=== PATIENT | male | born 1960 | race Caucasian/White ===

== ENCOUNTER 2016-07-09 09:21 | Emergency (ER) | payer BC ==
[2016-07-09] MEDS ORDERED: TETANUS/DIPHTHERIA/PERTUSSIS 0.5 ML SYRINGE IM ONE ×2 (09:33→09:38)
[2016-07-09] MEDS ORDERED: CEPHALEXIN 250 MG CAPSULE PO STA (09:48)
--- NOTE | 2016-07-09 09:49 | ED Physician Documentation ---
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[facility] lac to radial aspect mid to distal L thumb with a table saw today Review of Systems Skin: reports: Laceration (s) PD PAST MEDICAL HISTORY - Past Surgical History Past Surgical History: Yes HEENT: Tonsil/Adenoidectomy - Present Medications Home Medications: Ambulatory Orders Medication Instructions Recorded Confirmed Cephalexin [Keflex] 500 mg PO Q6H #28 capsule 07/09/16 Hydrocodone/Acetaminophen [Vicodin 1 tab PO QID PRN 07/09/16 07/09/16 5-300 mg Tablet] - Allergies Allergies/Adverse Reactions: Allergies Allergy/AdvReac Type Severity Reaction Status Date / Time droperidol Allergy Unknown Verified 07/09/16 09:29 - Social History Does the pt smoke?: No Smoking Status: Never smoker Does the pt drink ETOH?: No Does the pt have substance abuse?: No - Immunizations Immunizations are current?: No Immunizations: TDAP >10years/unknown PD ED PE NORMAL - Vitals Vital signs reviewed: Yes - Extremities Extremities: Other (approx 2 cm jagged lac to radial aspect mid to distal L thum , slight dec snsation desital but some sensation in present so doubt complete nerve injury, full flexion and extension s weakness, + cap refill) Results - Vitals Vitals: Vital Signs - 24 hr 07/09/16 09:24 Temperature 36.8 C Heart Rate 83 Respiratory 18 Rate Blood Pressure 176/113 H O2 Saturation 97 Oxygen O2 Source Room air Departure - Departure Disposition: 01 Home, Self Care Clinical Impression: Laceration of thumb Qualifiers: Encounter type: initial encounter Laterality: left Qualified Code(s): S61.012A - Laceration without foreign body of left thumb without damage to nail, initial encounter Condition: Good Instructions: ED Lac Hand Poss Nerve Injy Sutr Gl Prescriptions: Cephalexin [Keflex] 500 mg PO Q6H #28 capsule Comments: This wound is at high risk for infection. We irrigated it out carefully and prescribed prophylactic antibiotics. But please watch carefully for any developing infection. Also you may have some nerve damage - there is still some sensation distally which is reassuring - but it is possible that the sensation may not return to normal Sutures out in 7 days Also -please follow up with your PMD about your blood pressure - it was high today
[2016-07-09] MEDS ORDERED: CEPHALEXIN 250 MG CAPSULE PO ONE (09:52)
[2016-07-09] MEDS ORDERED: BUPIVACAINE 0.5% PF 30 ML VIAL ONE (10:38)
--- NOTE | 2016-07-09 10:46 | XRAY Preliminary Report ---
Exam: XR Finger(s) LT IMPRESSION: Soft tissue injury without underlying acute bony abnormality or radiographically evident retained foreign body. [facility] SITE ID: [id number]
--- NOTE | 2016-07-09 10:48 | XRAY Report ---
EXAM: LEFT FIRST DIGIT RADIOGRAPHY EXAM DATE: 07/09/2016 09:55 AM. CLINICAL HISTORY: Tablesaw injury to left thumb. COMPARISON: None. TECHNIQUE: 3 views. FINDINGS: Bones: Surgical anchor in the first proximal phalangeal base. Tiny corticated osseous density lateral to the first interphalangeal joint, remote traumatic versus degenerative etiology No acute fracture. Joints: Mild osteophytosis at the first CMC and IP joints, compatible with gastroenteritis. Soft Tissues: Focal soft tissue defect lateral to the first distal phalanx. No radiopaque foreign bod y. IMPRESSION: Soft tissue injury without underlying acute bony abnormality or radiographically evident retained foreign body. [facility] Referring Provider Line: [phone] SITE ID: [id number]
[2016-07-09 12:08] VITALS: BP 181/102
== END 2016-07-09 12:22 | disposition home or self-care (01) ==
LOC: ED 09:21
DX: S61.012A Laceration without foreign body of left thumb without damage to nail, initial encounter (principal); W31.2XXA Contact with powered woodworking and forming machines, initial encounter; Z23 Encounter for immunization
CPT/HCPCS: 12001; 73140; 90471; 90715; 99283; A9270

== ENCOUNTER 2016-07-11 14:11 | Outpatient (CLI) | payer BC | END 2016-07-11 14:12 | disposition home or self-care (01) | DX: I10 Essential (primary) hypertension (principal); Z12.5 Encounter for screening for malignant neoplasm of prostate ==

== ENCOUNTER 2016-07-11 19:49 | Outpatient (CLI) | payer BC ==
[2016-07-11 17:41] LABS: BILIRUBIN,URINE NEGATIVE (NEGATIVE); PH,URINE 7.5 PH (5.0-7.5)
[2016-07-11 17:42] LABS: UA CHARGE (STRIP ONLY) YES; UR CULTURE IF IND NOT INDICATED
== END 2016-07-11 19:50 | disposition home or self-care (01) ==
LOC: LAB.R 19:49
PROVIDERS: ATTEND Internal Medicine
DX: I10 Essential (primary) hypertension (principal)
CPT/HCPCS: 81001; 81003; 82043; 82570; 87086

== ENCOUNTER 2016-07-13 08:00 | Outpatient (CLI) | payer BC | END 2016-07-13 23:59 | disposition home or self-care (01) | LOC: LAB.R 08:00 | PROVIDERS: ATTEND Internal Medicine | DX: I10 Essential (primary) hypertension (principal) | CPT/HCPCS: 82384; 83835 ==

== ENCOUNTER 2016-07-13 08:00 | Outpatient (CLI) | payer BC | END 2016-07-13 23:59 | disposition home or self-care (01) | LOC: LAB.R 08:00 | PROVIDERS: ATTEND Internal Medicine | DX: Z53.9 Procedure and treatment not carried out, unspecified reason (principal) ==

== ENCOUNTER 2016-07-19 13:52 | Outpatient (CLI) | payer BC ==
--- NOTE | 2016-07-21 09:59 | XRAY Report ---
EXAM: CHEST RADIOGRAPHY, 2 VIEWS EXAM DATE: 07/19/2016 03:07 PM. CLINICAL HISTORY: 56-year-old female with hypertension and abnormal EKG. COMPARISON: None. TECHNIQUE: Upright PA and lateral views. FINDINGS: Lungs/Pleura: No focal opacities evident. No pleural effusion. No pneumothorax. Normal volumes. Mediastinum: Heart and mediastinal contours are unremarkable. No pulmonary vascular congestion or netta nopathy. Other: Trachea and osseous structures are unremarkable. IMPRESSION: Normal chest for age and body size. [facility] Referring Provider Line: [phone] SITE ID: [id number]
== END 2016-07-19 13:53 | disposition home or self-care (01) ==
LOC: DI 13:52
PROVIDERS: ATTEND Internal Medicine
DX: I10 Essential (primary) hypertension (principal)
CPT/HCPCS: 71020; 93306

== ENCOUNTER 2016-07-24 08:54 | Outpatient (CLI) | payer BC ==
[2016-07-24 18:27] LABS: CHOL/HDL RATIO 4.7 (<5.0); CHOLESTEROL 149 mg/dL; HDL CHOLESTEROL 32 mg/dL; TRIGLYCERIDES 111 mg/dL; VLDL CHOLESTEROL 22 mg/dL
== END 2016-07-24 08:55 | disposition home or self-care (01) ==
LOC: LAB.R 08:54
PROVIDERS: ATTEND Internal Medicine
DX: I10 Essential (primary) hypertension (principal)
CPT/HCPCS: 80061

== ENCOUNTER 2022-04-07 01:17 | Emergency (ER) | payer BC ==
--- NOTE | 2022-04-07 01:33 | ED Physician Documentation ---
PD HPI CHEST PAIN - Stated complaint Stated Complaint: CHEST PX - Chief complaint Chief Complaint: Cardiac - History obtained from History obtained from: Patient - History of Present Illness Timing - onset: How many hours ago ( 1/2) Timing - onset during: Rest, Light activity Timing - details: Abrupt onset, Still present Quality: Pressure, Aching Location: Substernal, Epigastric Radiation: Abdominal. No: Neck, Back Improved by: No: Rest Worsened by: Palpation. No: Inspiration, Movement Associated symptoms: Shortness of air, Nausea. No: Diaphoresis, Vomiting, Feeling faint / dizzy Similar symptoms before: Has not had sx before, Other (He states he is typically active and does workout regularly. He had gone on a hike a few days ago without any exertionally related chest pain or dyspnea.) Recently seen: Not recently seen Review of Systems Constitutional: denies: Fever, Chills Nose: denies: Rhinorrhea / runny nose, Congestion Throat: denies: Sore throat Cardiac: reports: Chest pain / pressure. denies: Palpitations Respiratory: denies: Dyspnea, Cough GI: reports: Abdominal Pain, Nausea. denies: Vomiting, Diarrhea Musculoskeletal: denies: Neck pain, Back pain PD PAST MEDICAL HISTORY - Past Medical History Cardiovascular: None Respiratory: None Neuro: None Endocrine/Autoimmune: None - Past Surgical History Past Surgical History: Yes HEENT: Tonsil/Adenoidectomy - Present Medications Home Medications: Ambulatory Orders Medication Instructions Recorded Confirmed Amlodipine Besylate [Norvasc] 10 mg PO DAILY 04/07/22 04/07/22 Dicyclomine [Bentyl] 10 mg PO QID PRN #15 cap 04/07/22 Losartan Potassium [Cozaar] 100 mg PO DAILY 04/07/22 04/07/22 Ondansetron Odt [Zofran] 4 mg TL Q6H PRN #10 tablet 04/07/22 Oxycodone HCl/Acetaminophen 1 each PO Q6H PRN #20 tablet 04/07/22 [Percocet 5-325 mg Tablet] - Allergies Allergies/Adverse Reactions: Allergies Allergy/AdvReac Type Severity Reaction Status Date / Time droperidol Allergy Unknown Verified 04/07/22 01:26 - Social History Does the pt smoke?: No Smoking Status: Never smoker Does the pt drink ETOH?: No Does the pt have substance abuse?: No - Immunizations Immunizations are current?: No Immunizations: TDAP >10years/unknown PD ED PE NORMAL - Vitals Vital signs reviewed: Yes - General General: Alert and oriented X 3, Well developed/nourished, Other (appears in pain) - HEENT HEENT: Pharynx benign - Neck Neck: Supple, no meningeal sign, No adenopathy - Cardiac Cardiac: RRR, No murmur - Respiratory Respiratory: No respiratory distress, Clear bilaterally - Abdomen Abdomen: Normal bowel sounds, Soft, Non distended, No organomegaly, Other (He is actually fairly tender in the right upper quadrant with guarding in that area and mild percussion tenderness. No tenderness on the chest wall or cartilage.) - Derm Derm: Normal color, Warm and dry, No rash - Extremities Extremities: No tenderness to palpate, Normal ROM s pain, No edema, No calf tenderness / cord - Neuro Neuro: Alert and oriented X 3, No motor deficit, Normal speech Results - Vitals Vitals: Vital Signs - 24 hr 04/07/22 04/07/22 04/07/22 01:20 01:57 02:02 Temperature 36.0 C L Heart Rate 67 61 68 Respiratory 16 17 20 Rate Blood Pressure 144/77 H 121/76 111/59 L O2 Saturation 98 100 98 04/07/22 04/07/22 04/07/22 02:09 02:20 02:32 Temperature Heart Rate 67 80 Respiratory 17 23 Rate Blood Pressure 111/65 121/74 128/75 O2 Saturation 100 97 04/07/22 04/07/22 04/07/22 02:52 02:55 03:52 Temperature Heart Rate 68 70 70 Respiratory 19 18 18 Rate Blood Pressure 128/74 120/74 136/75 H O2 Saturation 99 99 96 04/07/22 04:10 Temperature Heart Rate 76 Respiratory 17 Rate Blood Pressure 129/74 O2 Saturation 97 Oxygen O2 Source Room air - EKG (time done) 01:23 Rate: Rate (enter#) (68) Rhythm: NSR Moody: Normal Intervals: Normal VT QRS: Normal Ischemia: Normal ST segments, T wave inversion (V4-V6). No: ST elevation c/w ischemia, ST depression Compare to prior EKG: Old EKG unavailable - Labs Labs: Laboratory Tests 04/07/22 04/07/22 04/07/22 01:25 01:25 01:25 WBC 8.6 RBC 4.54 L Hgb 14.1 Hct 41.8 L MCV 92.1 MCH 31.1 H MCHC 33.7 RDW 12.9 Plt Count 265 MPV 9.1 Neut # (Auto) 3.9 Lymph # (Auto) 3.5 [place] # (Auto) 0.9 Eos # (Auto) 0.3 Baso # (Auto) 0.1 Absolute Nucleated RBC 0.00 Nucleated RBC % 0.0 Sodium 138 Potassium 3.4 L Chloride 103 Carbon Dioxide 25 Anion Gap 10.0 BUN 11 Creatinine 0.6 Estimated GFR (MDRD) 137 Glucose 144 H Calcium 8.8 Magnesium Total Bilirubin 0.4 AST 20 ALT 20 Alkaline Phosphatase 53 Troponin I High Sens 3.2 B-Natriuretic Peptide Total Protein 6.9 Albumin 3.9 Globulin 3.0 Albumin/Globulin Ratio 1.3 Lipase 41 04/07/22 04/07/22 01:25 01:25 WBC RBC Hgb Hct MCV MCH MCHC RDW Plt Count MPV Neut # (Auto) Lymph # (Auto) [place] # (Auto) Eos # (Auto) Baso # (Auto) Absolute Nucleated RBC Nucleated RBC % Sodium Potassium Chloride Carbon Dioxide Anion Gap BUN Creatinine Estimated GFR (MDRD) Glucose Calcium Magnesium 2.3 Total Bilirubin AST ALT Alkaline Phosphatase Troponin I High Sens B-Natriuretic Peptide 34 Total Protein Albumin Globulin Albumin/Globulin Ratio Lipase - Rads (name of study) abd U/S Radiology: Prelim report reviewed (Thickened gallbladder wall with distended gallbladder. Common bile duct is normal. No Dean cholecystic fluid.), See rad report chest xray Radiology: Prelim report reviewed (no acute process), See rad report PD Medical Decision Making - ED course ED course: The patient presents with concerns of substernal chest pain. However on exam he actually seems to be fairly tender in the right upper quadrant and McBurney's point. The pain is lower substernal radiating to the back. Certainly there will be concern for cardiac causes and he did have an EKG, chest x-ray and both troponin and BNP that were all normal. He has been active. There is no calf tenderness nor leg edema so I have low to no suspicion for PE and there is no pleuritic component to the pain. He does have tenderness in the upper abdomen and that turns attention to the possibility of gallbladder or pancreas. Blood tests were done in showed normal blood tests for those. However given the suspicion for gallbladder, we I did order an ultrasound. The ultrasound was done and did show acute cholecystitis. His abdominal pain and tenderness did improve quite a bit with some pain medicine as well as Toradol. Initially he was given nitroglycerin with the first impression concern for heart. There was no change in his discomfort with that. He did have good improvement with hydromorphone IV. He was given a repeat dose of hydromorphone and his as his pain increased again a. He did remain reasonably comfortable. We did discuss the treatment options of staying for cholecystitis and cholecystectomy. However he was improving reasonably well. 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 At this point the patient has improved with symptoms and is able to take oral fluids and p.o. medications. His blood tests are normal. Shared decision is for him to discharge home with medications and clear liquid diet. He should contact surgeon outpatient and discuss likely cholecystectomy this coming week. If he does improve well, then it could be deferred even longer but that would be between he and his surgeon. Departure - Departure Disposition: 01 Home, Self Care Clinical Impression: Acute upper abdominal pain Cholecystitis, acute with cholelithiasis Qualifiers: Biliary obstruction: without biliary obstruction Qualified Code(s): K80.00 - Calculus of gallbladder with acute cholecystitis without obstruction Condition: Stable Record reviewed to determine appropriate education?: Yes Instructions: ED Gallbladder Infec Poss Follow-Up: Thee Nichols MD [Physician No Access] - Prescriptions: Dicyclomine [Bentyl] 10 mg PO QID PRN #15 cap PRN Reason: Abdominal Pain Oxycodone HCl/Acetaminophen [Percocet 5-325 mg Tablet] 1 each PO Q6H PRN #20 tablet PRN Reason: pain Ondansetron Odt [Zofran] 4 mg TL Q6H PRN #10 tablet PRN Reason: Nausea / Vomiting Comments: Your EKG had some inverted T waves on the lateral leads but no ischemic-looking changes per se (ST elevation or depression). Your blood tests looking for signs of heart injury or heart failure (troponin and BNP) are both normal. Your liver enzymes and white blood count are normal as is your lipase/pancreatic enzyme. Your abdominal ultrasound shows thickening of the gallbladder wall and some distention of the gallbladder. There is no surrounding fluid. The common bile duct is normal sized. This looks therefore to be an acute inflammation of the gallbladder likely from some plugging of his stones at the outlet of the gallbladder. It does not appear like an infection as of yet. The symptoms can reverse with some anti-inflammatories as well as clear liquid diet and treating the symptoms with nausea medicine and pain medicine. See how well this improves over the next few days and return to the ER if significantly worsened pain or associated fever, vomiting, bloody stools or generalized abdominal pain and distention. Otherwise follow-up with your general surgeon on Friday to discuss gallbladder surgery in the short-term. I sent prescriptions to [facility] pharmacy in [place] to include Zofran for nausea, Percocet for pain, and dicyclomine for gallbladder spasms/abdominal pain. I am prescribing a short course of narcotic pain medication for you. These are potentially dangerous and addictive medications that should be used carefully. These medications may constipate you. Take an [id number] stool softener such as docusate twice daily with plenty of water while taking these medications. If you go 24 hours without a bowel movement, take [id number] MiraLAX, per package instructions. Do not drink or drive while taking these medications. If you received narcotic or sedating medications while in the emergency department do not drive for 24 hours. Store this medication in a safe, secure place and out of reach of children. It is a violation of federal law to give or sell this medication to another person or to use in a manner other than prescribed. The ED will not refill narcotic prescriptions, including prescriptions lost or stolen. You can dispose of unwanted medications at the [facility] office or at several pharmacies such as [facility]. Discharge Date/Time: 04/07/22 04:17
[2022-04-07 01:35] LABS: BASOPHILS # (AUTO) 0.1 10^3/uL (0.0-0.1); BASOPHILS % (AUTO) 0.8 %; EOSINOPHILS # (AUTO) 0.3 10^3/uL (0.0-0.7); EOSINOPHILS % (AUTO) 3.6 %; HCT - HEMATOCRIT 41.8 % (42.0-52.0); HGB - HEMOGLOBIN 14.1 g/dL (14.0-18.0); LYMPHOCYTES # (AUTO) 3.5 10^3/uL (1.5-3.5); MEAN CORPUSCULAR HEMOGLOBIN 31.1 pg (27.0-31.0); MEAN CORPUSCULAR HGB CONC 33.7 g/dL (32.0-36.0); MEAN CORPUSCULAR VOLUME 92.1 fL (80.0-94.0); MEAN PLATELET VOLUME 9.1 fL (7.4-11.4); MONOCYTES # (AUTO) 0.9 10^3/uL (0.0-1.0); MONOCYTES % (AUTO) 10.7 %; NEUTROPHILS # (AUTO) 3.9 10^3/uL (1.5-6.6); NEUTROPHILS % (AUTO) 44.8 %; PLT - PLATELET COUNT 265 10^3/uL (130-450); RED BLOOD COUNT 4.54 10^6/uL (4.70-6.10); RED CELL DISTRIBUTION WIDTH 12.9 % (12.0-15.0); WHITE BLOOD COUNT 8.6 x10^3/uL (4.8-10.8)
[2022-04-07] MEDS ORDERED: NITROGLYCERIN SL 0.4 MG TABLET SL STA (01:48)
[2022-04-07] MEDS ORDERED: KETOROLAC 15 MG/ML VIAL IVP STA (01:48)
[2022-04-07] MEDS ORDERED: HYDROmorphone 1 MG/ML CARPUJECT IVP STA ×3 (01:48→03:46)
[2022-04-07 01:49] LABS: ALBUMIN 3.9 g/dL (3.2-5.5); ALBUMIN/GLOBULIN RATIO 1.3 (1.0-2.2); BILIRUBIN,TOTAL 0.4 mg/dL (0.2-1.0); CALCIUM 8.8 mg/dL (8.5-10.3); CREATININE 0.6 mg/dL (0.6-1.2); POTASSIUM 3.4 mmol/L (3.5-5.0); TOTAL PROTEIN 6.9 g/dL (6.7-8.2)
--- NOTE | 2022-04-07 02:02 | XRAY Report ---
PROCEDURE: Chest 1 View X-Ray INDICATIONS: Chest pain TECHNIQUE: One view of the chest was acquired. COMPARISON: 07/19/2016 2 view chest. FINDINGS: Surgical changes and devices: None. Lungs and pleura: No pleural effusions or pneumothorax. Lungs are mildly abnormal, with an intersti tial prominence that has been previously present on the comparison chest plain film also from June 7.. Mediastinum: Mediastinal contours appear normal. Heart size is normal. Bones and chest wall: No suspicious bony lesions. Overlying soft tissues appear unremarkable. IMPRESSION: Mild interstitial prominence within the lung parenchyma without cardiomegaly or focal pneumonia found . A similar interstitial prominence was present also in 2017. No acute disease. Reviewed by: Clark Prieto MD on 04/07/2022 2:01 AM [facility] Approved by: Clark Prieto MD on 04/07/2022 2:01 AM [facility] Station ID: [id number]
[2022-04-07] MEDS ORDERED: SODIUM CHLORIDE 0.9% 500 ML IV STA (02:05)
[2022-04-07] MEDS ORDERED: DICYCLOMINE 10 MG CAPSULE PO STA (03:46)
[2022-04-07] MEDS ORDERED: ONDANSETRON ODT 4 MG Prepack 2 TL PRN (03:46)
[2022-04-07] MEDS ORDERED: oxyCODONE/ACET 5/325 Prepack 4 PO STA (03:46)
[2022-04-07 04:19] VITALS: BP 129/74
--- NOTE | 2022-04-07 08:33 | Ultrasound Report ---
PROCEDURE: Abdomen Limited INDICATIONS: abrupt RUQ pain since 12 am TECHNIQUE: Real-time focused scanning was performed of the abdomen, with image documentation. COMPARISON: None FINDINGS: Liver is normal in size and echotexture. 3.8 x 2 x 3.6 cm simple appearing cyst is seen in right hepa tic lobe. No internal vascularity. Normal hepatopedal flow is seen in patent main portal vein. Gallbladder is distended. Multiple mobile stones are seen within gallbladder lumen dependent portion. There is thickening of gallbladder wall. No pericholecystic fluid or sonographic Gaona's sign.. There is no gross intrahepatic biliary ductal dilatation. Common bile duct measures up to 5.6 mm in d iameter. No definite common bile duct stone is seen. Visualized portion of pancreas shows no gross abnormality. Right kidney measures 10.7 cm in length and 1.7 cm in renal cortical thickness. No hydronephrosis or nephrolithiasis. IMPRESSION: 1. Cholelithiasis with gallbladder wall thickening concerning for early acute cholecystitis. 2. No evidence of biliary ductal dilatation. No definite common bile stone. Choledocholithiasis canno t be entirely excluded. MRCP can be done for further evaluation if indicated. 3. Simple appearing right hepatic lobe cyst as above. No discrepancies from preliminary reading. Reviewed by: Pavan Smalls MD on 04/07/2022 8:32 AM PST Approved by: Pavan Smalls MD on 04/07/2022 8:32 AM PST Station ID: [id number]
== END 2022-04-07 04:17 | disposition home or self-care (01) ==
LOC: ED 01:17
DX: K80.00 Calculus of gallbladder with acute cholecystitis without obstruction (principal)
CPT/HCPCS: 36415; 71045; 76705; 80053; 83690; 83735; 83880; 84484; 85025; 93005; 96361; 96374; 96375; 96376; 99284; A9270; J1170